=== PATIENT | male | born 1985 | race African-American/Black ===

== ENCOUNTER 2016-10-15 18:38 | Emergency (ER) | payer OTHER ==
[~2016-10-15] VITALS: Ht 188 cm; Wt 89.9 kg
[2016-10-15] MEDS ORDERED: FLEXERIL10 MG PO (19:59)
[2016-10-15] MEDS ORDERED: NAPROSYN500 MG PO (19:59)
[2016-10-15 20:54] VITALS: BP 00/0
== END 2016-10-15 20:55 | disposition home or self-care (01) ==
LOC: EME 18:38 → RME 18:38
PROC: 2W3FX1Z Immobilization of Left Hand using Splint (ICD-10-PCS; principal; 2016-10-15)
DX: M79.642 Pain in left hand (principal); M54.5 Low back pain; M54.2 Cervicalgia; V43.52XA Car driver injured in collision with other type car in traffic accident, initial encounter
CPT/HCPCS: 73110; 99281; 99283

== ENCOUNTER 2016-10-23 13:43 | Emergency (ER) | payer OTHER ==
[~2016-10-23] VITALS: Ht 188 cm; Wt 91.4 kg
[~2016-10-23 13:43] MED LIST: FLEXERIL10 MG PO; NAPROSYN500 MG PO
[2016-10-23] MEDS ORDERED: ULTRAM50 MG PO (15:16)
[2016-10-23 16:05] VITALS: BP 144/84
== END 2016-10-23 16:06 | disposition home or self-care (01) ==
LOC: EME 13:43
DX: M54.2 Cervicalgia (principal); V49.40XA Driver injured in collision with unspecified motor vehicles in traffic accident, initial encounter
CPT/HCPCS: 72040; 72070; 99281; 99284